=== PATIENT | female | born 1995 | race Caucasian/White ===

== ENCOUNTER 2018-12-09 12:06 | Emergency (ER) | payer MEDICAID ==
[~2018-12-09] VITALS: Ht 157.5 cm; Wt 57.7 kg
[~2018-12-09 12:06] MED LIST: CEPH-443 PO; CLIN300C10 PO; IBUP-1542 PO; IBUP-1561 PO; SULF1TAB31 PO; TRAM50TA2 PO
[2018-12-09 12:30] VITALS: Ht 157.5 cm; Wt 57.7 kg
[2018-12-09] MEDS ORDERED: LIDOCAINE 4% CR TOP ONE (13:30)
[2018-12-09] MEDS ORDERED: LIDOCAINE 1% (MDV) 20 ML INJ SC ONE (13:30)
== END 2018-12-09 15:50 | disposition home or self-care (01) ==
LOC: FTE 12:06
DX: L02.416 Cutaneous abscess of left lower limb (principal)
CPT/HCPCS: 10060; 76882; 81025; Z7502; Z7610